=== PATIENT | female | born 1970 | race Two or more races ===

== ENCOUNTER 2018-07-03 22:40 | Inpatient (IN) | payer MEDICAID ==
[~2018-07-03] VITALS: Ht 160 cm; Wt 69.9 kg
[2018-07-03 23:22] VITALS: BP 132/83
[2018-07-03] MEDS ORDERED: Z GUARD REMEDY 2 OZ OINT TP PRN (23:30)
[2018-07-03] MEDS ORDERED: ONDANSETRON HCL/PF 4 MG/2 ML VIAL IVP PRN (23:30)
[2018-07-03] MEDS ORDERED: HYDROCODONE/APAP 5/325MG 1 EACH TABLET PO PRN (23:30)
[2018-07-03] MEDS ORDERED: MAGNESIUM HYDROXIDE 30 ML UDC PO PRN (23:30)
[2018-07-03] MEDS ORDERED: ACETAMINOPHEN 325 MG TABLET PO PRN (23:30)
[2018-07-04] VITALS (16 sets, daily range): BP systolic 107–148; BP diastolic 62–86
[2018-07-04 00:05] LABS: CALCIUM, SERUM 8.6 mg/dL (8.5-10.1); CREATININE 0.9 mg/dL (0.6-1.3); POTASSIUM 3.9 mmol/L (3.5-5.1)
[2018-07-04 00:13] LABS: BASOPHILS % (AUTO) 0.1 % (0.0-2.0); EOSINOPHILS % (AUTO) 0.2 % (0.0-6.0); LYMPHOCYTES # (AUTO) 1.8 /CMM (0.8-4.8); LYMPHOCYTES % (AUTO) 41.1 % (20.0-44.0); MEAN CORPUSCULAR HGB CONC 33 g/dl (31.0-36.0); MEAN CORPUSCULAR VOLUME 111 fL (82-100); MONOCYTES # (AUTO) 1.5 /CMM (0.1-1.30); NEUTROPHILS # (AUTO) 1.1 /CMM (1.8-8.9); NEUTROPHILS % (AUTO) 24.6 % (43.0-81.0); WHITE BLOOD COUNT (AUTO) 4.5 K/uL (4.3-11.0)
[2018-07-04 00:14] LABS: RED BLOOD CELL COUNT(AUTO) 1.54 MIL/uL (4.0-5.2)
[2018-07-04 00:17] LABS: HEMATOCRIT 17 % (33-45); HEMOGLOBIN 5.6 g/dL (11.5-14.8); PLATELET COUNT (AUTO) 20 /CMM (150-450)
[2018-07-04 00:33] LABS: EOSINOPHILS % (MANUAL) 1 % (0-4); LYMPHOCYTES % (MANUAL) 59 % (16-48); MONOCYTES % (MANUAL) 12 % (0-11.0); NEUTROPHILS % (MANUAL) 28 (42-76)
[2018-07-04 07:15] LABS: BASOPHILS % (AUTO) 0.2 % (0.0-2.0); EOSINOPHILS % (AUTO) 0.2 % (0.0-6.0); HEMATOCRIT 22 % (33-45); HEMOGLOBIN 7.4 g/dL (11.5-14.8); LYMPHOCYTES # (AUTO) 1.9 /CMM (0.8-4.8); LYMPHOCYTES % (AUTO) 39.2 % (20.0-44.0); MEAN CORPUSCULAR HGB CONC 34 g/dl (31.0-36.0); MEAN CORPUSCULAR VOLUME 103 fL (82-100); MONOCYTES # (AUTO) 1.8 /CMM (0.1-1.30); MONOCYTES % (AUTO) 36.9 % (2.0-12.0); NEUTROPHILS # (AUTO) 1.1 /CMM (1.8-8.9); NEUTROPHILS % (AUTO) 23.5 % (43.0-81.0); RED BLOOD CELL COUNT(AUTO) 2.11 MIL/uL (4.0-5.2); WHITE BLOOD COUNT (AUTO) 4.8 K/uL (4.3-11.0)
[2018-07-04 07:38] LABS: CALCIUM, SERUM 8.7 mg/dL (8.5-10.1); CREATININE 0.9 mg/dL (0.6-1.3); PHOSPHORUS 4.7 mg/dL (2.5-4.9); POTASSIUM 3.8 mmol/L (3.5-5.1)
[2018-07-04 07:39] LABS: PLATELET COUNT (AUTO) 20 /CMM (150-450)
[2018-07-04] MEDS: FOLIC ACID 1 MG TABLET PO SCH (08:14)
[2018-07-04] MEDS: PSYLLIUM SEED 1 PKT PACKET PO SCH (08:14)
[2018-07-04] MEDS: FERROUS SULFATE (325 MG) 325 MG/TAB TABLET PO SCH ×2 (08:14→18:52)
[2018-07-04 08:34] LABS: NEUTROPHILS % (MANUAL) 22 (42-76)
[2018-07-04 08:35] LABS: LYMPHOCYTES % (MANUAL) 61 % (16-48); MONOCYTES % (MANUAL) 17 % (0-11.0)
[2018-07-04] MEDS: NEOMY SULF/BACITRAC ZN/POLY 15 GM TUBE TP SCH (12:43)
[2018-07-04 13:46] LABS: THYROID STIMULATING HORMONE 3.537 uIU/mL (0.358-3.74)
[2018-07-04] MEDS ORDERED: MULT1TAB62 PO (17:36)
[2018-07-04] MEDS ORDERED: CHOL100044 PO (17:36)
[2018-07-04] MEDS ORDERED: ESCI10TA PO (17:36)
[2018-07-04] MEDS ORDERED: EMTR1TAB17 PO (17:36)
[2018-07-04] MEDS ORDERED: DARU1TAB PO (17:36)
[2018-07-04] MEDS ORDERED: DOCU-270 PO (17:36)
[2018-07-04] MEDS ORDERED: OMEG1CAP PO (17:36)
[2018-07-04] MEDS ORDERED: CEFTRIAXONE 1 G VIAL ONE (19:56)
[2018-07-04] MEDS: CEFTRIAXONE 1 G in IV D5W 50 ML IV SCH (20:13)
[2018-07-04] MEDS ORDERED: AZITHROMYCIN 500 MG VIAL ONE (21:42)
[2018-07-04] MEDS ORDERED: AZITHROMYCIN 500 MG in IV D5W 250 ML IV SCH (22:00)
[2018-07-04] MEDS: ZOLPIDEM TARTRATE 5 MG TABLET PO PRN (22:25)
[2018-07-04 23:34] LABS: OCCULT BLOOD STOOL NEGATIVE (NEGATIVE)
[2018-07-05] VITALS (8 sets, daily range): BP systolic 111–141; BP diastolic 66–88
[2018-07-05 07:03] LABS: BASOPHILS % (AUTO) 0.3 % (0.0-2.0); HEMATOCRIT 24 % (33-45); HEMOGLOBIN 8.2 g/dL (11.5-14.8); LYMPHOCYTES # (AUTO) 1.7 /CMM (0.8-4.8); MEAN CORPUSCULAR HGB CONC 34 g/dl (31.0-36.0); MEAN CORPUSCULAR VOLUME 99 fL (82-100); MONOCYTES % (AUTO) 40.3 % (2.0-12.0); NEUTROPHILS # (AUTO) 1.2 /CMM (1.8-8.9); NEUTROPHILS % (AUTO) 24.4 % (43.0-81.0); PLATELET COUNT (AUTO) 74 /CMM (150-450); RED BLOOD CELL COUNT(AUTO) 2.42 MIL/uL (4.0-5.2); WHITE BLOOD COUNT (AUTO) 4.9 K/uL (4.3-11.0)
[2018-07-05 07:12] LABS: CALCIUM, SERUM 9.1 mg/dL (8.5-10.1); CREATININE 0.8 mg/dL (0.6-1.3); POTASSIUM 3.8 mmol/L (3.5-5.1)
[2018-07-05 08:26] LABS: LYMPHOCYTES % (MANUAL) 65 % (16-48); NEUTROPHILS % (MANUAL) 22 (42-76)
[2018-07-05 08:27] LABS: MONOCYTES % (MANUAL) 13 % (0-11.0)
[2018-07-05] MEDS: FOLIC ACID 1 MG TABLET PO SCH (08:29)
[2018-07-05] MEDS: FERROUS SULFATE (325 MG) 325 MG/TAB TABLET PO SCH ×2 (08:29→16:50)
[2018-07-05] MEDS: PSYLLIUM SEED 1 PKT PACKET PO SCH (08:29)
[2018-07-05] MEDS ORDERED: ESCITALOPRAM OXALATE (10 MG) 10 MG TABLET PO SCH (09:00)
[2018-07-05] MEDS: DOCUSATE SODIUM 100 MG CAPSULE PO SCH (09:00)
[2018-07-05] MEDS: NEOMY SULF/BACITRAC ZN/POLY 15 GM TUBE TP SCH ×2 (09:00→16:57)
[2018-07-05] MEDS: CHOLECALCIFEROL 1,000 UNIT TABLET (VIT D3) PO SCH (09:54)
[2018-07-05] MEDS: MULTIVITAMINS,THERAGRAN 1 UDTAB TABLET PO SCH (09:55)
[2018-07-05 10:17] LABS: *% CD 4 POS. LYMPH 31.9 % (30.8-58.5); *% CD 8 POS. LYMPH 56.5 % (12.0-35.5); *CD4/CD8 RATIO 0.56 (0.92-3.72)
[2018-07-05] MEDS: DESCOVY 200-25MG TAB PO SCH (10:55)
[2018-07-05] MEDS: PREZCOBIX PO SCH (10:55)
[2018-07-05 14:19] LABS: *ABSOLUTE CD 4 HELPER 479 /uL (359-1519); *ABSOLUTE CD 8 SUPPRESSOR 848 /uL (109-897); *BASOS 0 % (Not Estab.); *EOS 0 % (Not Estab.); *HCT 21.8 % (34.0-46.6); *HGB 7.1 g/dL (11.1-15.9); *LYMPHOCYTES 30 % (Not Estab.); *LYMPHS, ABSOLUTE 1.5 x10E3/uL (0.7-3.1); *MCH 33.6 pg (26.6-33.0); *MCHC 32.6 g/dL (31.5-35.7); *MCV 103 fL (79-97); *MONOCYTES 8 % (Not Estab.); *MONOS, ABSOLUTE 0.4 x10E3/uL (0.1-0.9); *NEUTROPHILS 17 % (Not Estab.); *NEUTROPHILS, ABSOLUTE 0.9 x10E3/uL (1.4-7.0); *PLT 27 x10E3/uL (150-379); *RBC 2.11 x10E6/uL (3.77-5.28); *RDW 19.9 % (12.3-15.4)
[2018-07-05] MEDS: CEFTRIAXONE 1 G in IV D5W 50 ML IV SCH (20:35)
[2018-07-05] MEDS ORDERED: AZITHROMYCIN 250 MG TABLET PO SCH (22:00)
[2018-07-05] MEDS: ZOLPIDEM TARTRATE 5 MG TABLET PO PRN (22:32)
[2018-07-06 04:00] VITALS: BP 103/73
[2018-07-06 07:37] LABS: BASOPHILS % (AUTO) 0.3 % (0.0-2.0); EOSINOPHILS % (AUTO) 0.1 % (0.0-6.0); HEMATOCRIT 24 % (33-45); HEMOGLOBIN 8.1 g/dL (11.5-14.8); LYMPHOCYTES % (AUTO) 39.5 % (20.0-44.0); MEAN CORPUSCULAR HGB CONC 34 g/dl (31.0-36.0); MEAN CORPUSCULAR VOLUME 100 fL (82-100); MONOCYTES # (AUTO) 2.2 /CMM (0.1-1.30); NEUTROPHILS # (AUTO) 0.9 /CMM (1.8-8.9); NEUTROPHILS % (AUTO) 17.1 % (43.0-81.0); PLATELET COUNT (AUTO) 53 /CMM (150-450); RED BLOOD CELL COUNT(AUTO) 2.37 MIL/uL (4.0-5.2); WHITE BLOOD COUNT (AUTO) 5.1 K/uL (4.3-11.0)
[2018-07-06 08:00] VITALS: BP 110/70
[2018-07-06 08:16] LABS: LYMPHOCYTES % (MANUAL) 56 % (16-48); MONOCYTES % (MANUAL) 24 % (0-11.0); NEUTROPHILS % (MANUAL) 20 (42-76)
[2018-07-06 08:18] LABS: CALCIUM, SERUM 9.1 mg/dL (8.5-10.1); CREATININE 0.9 mg/dL (0.6-1.3); POTASSIUM 4.4 mmol/L (3.5-5.1)
[2018-07-06] MEDS: CHOLECALCIFEROL 1,000 UNIT TABLET (VIT D3) PO SCH (08:35)
[2018-07-06] MEDS: FERROUS SULFATE (325 MG) 325 MG/TAB TABLET PO SCH ×2 (08:36→16:11)
[2018-07-06] MEDS: MULTIVITAMINS,THERAGRAN 1 UDTAB TABLET PO SCH (08:36)
[2018-07-06] MEDS: DESCOVY 200-25MG TAB PO SCH (08:37)
[2018-07-06] MEDS: FOLIC ACID 1 MG TABLET PO SCH (08:37)
[2018-07-06] MEDS: PREZCOBIX PO SCH (08:37)
[2018-07-06] MEDS: DOCUSATE SODIUM 100 MG CAPSULE PO SCH (08:38)
[2018-07-06] MEDS: PSYLLIUM SEED 1 PKT PACKET PO SCH (08:38)
[2018-07-06] MEDS: NEOMY SULF/BACITRAC ZN/POLY 15 GM TUBE TP SCH (08:39)
[2018-07-06 14:13] LABS: *COMMENTS Note: (.)
[2018-07-06 16:00] VITALS: BP 120/61
[2018-07-06] MEDS: FLUOCINOLONE CREAM 0.01% TUBE TP SCH (16:11)
[2018-07-06 20:00] VITALS: BP 132/86
[2018-07-06] MEDS: ZOLPIDEM TARTRATE 5 MG TABLET PO PRN (23:36)
[2018-07-07 04:00] VITALS: BP 124/77
[2018-07-07 07:26] LABS: HEMATOCRIT 23 % (33-45); HEMOGLOBIN 7.9 g/dL (11.5-14.8); LYMPHOCYTES % (AUTO) 42.9 % (20.0-44.0); MEAN CORPUSCULAR HGB CONC 34 g/dl (31.0-36.0); MEAN CORPUSCULAR VOLUME 101 fL (82-100); MONOCYTES # (AUTO) 2.1 /CMM (0.1-1.30); MONOCYTES % (AUTO) 45.1 % (2.0-12.0); NEUTROPHILS # (AUTO) 0.6 /CMM (1.8-8.9); RED BLOOD CELL COUNT(AUTO) 2.27 MIL/uL (4.0-5.2); WHITE BLOOD COUNT (AUTO) 4.7 K/uL (4.3-11.0)
[2018-07-07 07:32] LABS: CALCIUM, SERUM 9.1 mg/dL (8.5-10.1); CREATININE 0.8 mg/dL (0.6-1.3); MAGNESIUM 2.3 mg/dL (1.8-2.4); PHOSPHORUS 5.6 mg/dL (2.5-4.9); POTASSIUM 4.4 mmol/L (3.5-5.1)
[2018-07-07 07:35] LABS: PLATELET COUNT (AUTO) 40 /CMM (150-450)
[2018-07-07 08:00] VITALS: BP 107/70
[2018-07-07] MEDS: PREZCOBIX PO SCH (08:14)
[2018-07-07] MEDS: DESCOVY 200-25MG TAB PO SCH (08:14)
[2018-07-07] MEDS: DOCUSATE SODIUM 100 MG CAPSULE PO SCH (08:15)
[2018-07-07] MEDS: CHOLECALCIFEROL 1,000 UNIT TABLET (VIT D3) PO SCH (08:15)
[2018-07-07] MEDS: FOLIC ACID 1 MG TABLET PO SCH (08:15)
[2018-07-07] MEDS: FERROUS SULFATE (325 MG) 325 MG/TAB TABLET PO SCH (08:15)
[2018-07-07] MEDS: MULTIVITAMINS,THERAGRAN 1 UDTAB TABLET PO SCH (08:15)
[2018-07-07] MEDS: PSYLLIUM SEED 1 PKT PACKET PO SCH (08:15)
[2018-07-07] MEDS: FLUOCINOLONE CREAM 0.01% TUBE TP SCH (08:22)
[2018-07-07] MEDS: NEOMY SULF/BACITRAC ZN/POLY 15 GM TUBE TP SCH (08:22)
[2018-07-07 08:52] LABS: LYMPHOCYTES % (MANUAL) 44 % (16-48); MONOCYTES % (MANUAL) 39 % (0-11.0); NEUTROPHILS % (MANUAL) 17 (42-76)
[2018-07-07 09:00] VITALS: BP 107/70
[2018-07-09 17:13] LABS: *HIV-1 RNA BY PCR <20 copies/mL (.)
== END 2018-07-07 14:12 | disposition home or self-care (01) | DRG 663 ==
LOC: TELE-TD 22:42 → TELE1 07-04 11:21 → MEDSG1 07-05 15:25
PROVIDERS: ADMIT Nurse Practitioner Acute Care; ATTEND Internal Medicine
DX: D64.9 Anemia, unspecified (principal); J15.9 Unspecified bacterial pneumonia; D69.59 Other secondary thrombocytopenia; S71.011A Laceration without foreign body, right hip, initial encounter; E86.1 Hypovolemia; R55 Syncope and collapse; W18.2XXA Fall in (into) shower or empty bathtub, initial encounter; Y93.9 Activity, unspecified; Y92.009 Unspecified place in unspecified non-institutional (private) residence as the place of occurrence of the external cause; Z91.14 Patient's other noncompliance with medication regimen; D61.818 Other pancytopenia
CPT/HCPCS: 36415; 71046; 80048-TC; 80061-TC; 82272-TC; 82728-TC; 83540-TC; 83605-TC; 83735-TC; 84100-TC; 84443-TC; 84703-TC; 85025-TC; 86360; 86850-TC; 86921-TC; 87040-TC; 87081-TC; 87086-TC; 87536; A6253; A6402; G0378; J0456; J0696; J7030; J7060; P9016-BL; P9034-BL

== ENCOUNTER 2018-08-06 18:31 | Inpatient (IN) | payer MEDICAID ==
[~2018-08-06] VITALS: Ht 160 cm; Wt 74.8 kg
[~2018-08-06 18:31] MED LIST: CHOL100044 PO; DARU1TAB PO; DOCU-270 PO; EMTR1TAB17 PO; ESCI10TA PO; MULT1TAB62 PO; OMEG1CAP PO
--- NOTE | 2018-08-06 18:52 | NUR ---
C/O DIZZINESS FOR 2WEEKS WORSE WHEN STANDING. DENIES PAIN, SOB, WEAKNESS. SKIN INTACT, AOX4, NO ACUTE DISTRESS NOTED. READY FOR EVAL.
[2018-08-06] MEDS ORDERED: PANTOPRAZOLE 40 MG VIAL ONE (19:13)
[2018-08-06] MEDS ORDERED: PANTOPRAZOLE 40 MG VIAL IV ONE (19:30)
[2018-08-06 19:42] LABS: BASOPHILS % (AUTO) 0.1 % (0.0-2.0); LYMPHOCYTES # (AUTO) 2.2 /CMM (0.8-4.8); LYMPHOCYTES % (AUTO) 45.7 % (20.0-44.0); MEAN CORPUSCULAR HGB CONC 34 g/dl (31.0-36.0); MEAN CORPUSCULAR VOLUME 102 fL (82-100); MONOCYTES # (AUTO) 1.8 /CMM (0.1-1.30); NEUTROPHILS # (AUTO) 0.8 /CMM (1.8-8.9); NEUTROPHILS % (AUTO) 16.2 % (43.0-81.0); WHITE BLOOD COUNT (AUTO) 4.8 K/uL (4.3-11.0)
[2018-08-06 19:43] LABS: RED BLOOD CELL COUNT(AUTO) 1.45 MIL/uL (4.0-5.2)
[2018-08-06 19:44] LABS: HEMATOCRIT 15 % (33-45); PLATELET COUNT (AUTO) 12 /CMM (150-450)
[2018-08-06 19:54] LABS: ALANINE AMINOTRANSFERASE 20 U/L (12-78); ALBUMIN 3.5 g/dL (3.4-5.0); ALKALINE PHOSPHATASE 98 U/L (46-116); ASPARTATE AMINOTRANSFERASE 15 U/L (15-37); BILIRUBIN,TOTAL 0.2 mg/dL (0.2-1.0); CALCIUM, SERUM 8.9 mg/dL (8.5-10.1); CARBON DIOXIDE 19 mmol/L (21-32); CHLORIDE 102 mmol/L (98-107); CREATININE 0.9 mg/dL (0.6-1.3); GLUCOSE 124 mg/dL (74-106); POTASSIUM 3.7 mmol/L (3.5-5.1); SODIUM SERUM 137 mmol/L (136-145); TOTAL PROTEIN, SERUM 8.8 g/dL (6.4-8.2); UREA NITROGEN, BLOOD 18 mg/dL (7-18)
--- NOTE | 2018-08-06 20:58 | NUR ---
ADMIT TO ROOM 307-1 DX DIZZINES TELE ACCEPTING ELEUTERIO POTTER
[2018-08-06 21:11] LABS: LYMPHOCYTES % (MANUAL) 44 % (16-48); METAMYELOCYTES % 9 % (0-0); MONOCYTES % (MANUAL) 6 % (0-11.0); MYELOCYTES % 7 % (0-0); NEUTROPHILS % (MANUAL) 10 (42-76); PROMYELOCYTES % 24 % (0-0)
--- NOTE | 2018-08-06 21:17 | NUR ---
BLOOD TRANSFUSION STARTED, VSS, AT 125ML/HR. WILL CONT TO MONITOR OVER NEXT 15 MIN
--- NOTE | 2018-08-06 21:21 | NUR ---
PT REASSIGNED TO BED 115-2
--- NOTE | 2018-08-06 21:32 | NUR ---
REPORT GIVEN TO TEST CELL TECHNICIANTITO BAUMANN FOR 115-2 MARAL
--- NOTE | 2018-08-06 21:32 | NUR ---
PT STABLE AFTER 15 MIN. NO EVIDENCE OF TRANSFUSION REACTION. WILL CONT TRANSFUSION AT 150 ML/HR AND CONT TO MONITOR.
[2018-08-06 22:20] VITALS: BP 147/78
--- NOTE | 2018-08-06 22:20 | NUR ---
REFRIGERATION SUPERVISOR NOTES PT RECEIVED A&OX4. PT PLACED ON TELE MONITOR, READING SR , HR 90. PT COMPLAINS AND WEAKNESS AND DIZZINESS ON EXERTION. NO PAIN REPORTED. PT HAS L HAND #20 G. WITH I UNIT PRBC INFUSING WHICH WAS STARTED IN THE ED. PT ORIENTED TO ROOM AND FLOOR. ALL SAFETY PRECAUTIONS TAKE. BED IN LOW LOCKED POSITION. CALL LIGHT WITH IN REACH. WILL CONT TO MONITOR.
--- NOTE | 2018-08-06 22:24 | NUR ---
PT TRANSFERRED TO FLOOR VIA SUNNY Addendum: 08/06/18 at 2245 by JEREMY BLOOD TRANSFUSION CONTINUED TO FLOOR
--- NOTE | 2018-08-06 22:45 | NUR ---
BED 110 MARAL
--- NOTE | 2018-08-06 23:45 | NUR ---
RN NOTES TRANSFUSION OF PRBC COMPLETED. NO REACTION NOTED. PT IN STABLE CONDITION.
[2018-08-07] VITALS (13 sets, daily range): BP systolic 90–130; BP diastolic 52–165
--- NOTE | 2018-08-07 00:30 | NUR ---
RN NOTES CALLED [facility],B RE; PLATELETS TO BE TRANSFUSED ORDERED. PER LAB PERSONAL. PLATELETS WILL NOT BE AVAILABLE UNTIL 0300AM. LAB WILL CALL RN WHEN PLATELETS ARRIVE. CHARGE NURSE ELON AND MD ABBEY MCCLELLAN NOTIFIED.
--- NOTE | 2018-08-07 02:51 | NUR ---
TITO NOTES 0205 LEFT MESSAGE FOR ELEUTERIO POTTER NP FOLLOW UP FOR ADMISSION ORDERS Addendum: 08/07/18 at 0310 by ARVIND CHÁVEZ RN 0309 MESSAGE SENT TO Jimenez POTTER NP TO REMIND HER OF ADMISSION ORDERS
[2018-08-07] MEDS ORDERED: ONDANSETRON HCL/PF 4 MG/2 ML VIAL IVP PRN (06:00)
[2018-08-07] MEDS ORDERED: ZOLPIDEM TARTRATE 5 MG TABLET PO PRN (06:00)
[2018-08-07] MEDS ORDERED: ACETAMINOPHEN 325 MG TABLET PO PRN (06:00)
[2018-08-07] MEDS ORDERED: Z GUARD REMEDY 2 OZ OINT TP PRN (06:00)
--- NOTE | 2018-08-07 07:20 | NUR ---
RN OPENING NOTES PT IS LAYING IN BED IN SEMI SY POSITION. RECEIVED REPORT FROM SIDE PANEL HANGER RN. PT RECEIVED PLATELET TRANSFUSION AT THE END OF THE TRANSFUSION PT COMPLAINED OF ITCHING. PER SIDE PANEL HANGER RN SHE CONTACTED THE LITHOGRAPHIC ETCHER PHYSICIAN AND LEFT A MESSAGE. PICTURES WERE TAKEN BY ME. WHEN ASKED PT SAYS THE ITCHING SENSATION IS MINIMAL AND REFUSED BENADRYL WHEN OFFERED. PT DENIES ANY PAIN OR SOB AT PRESENT MOMENT WILL CONTINUE TO MONITOR.
--- NOTE | 2018-08-07 07:35 | NUR ---
RN CLOSING NOTES PLATE TRANSFUSION WAS COMPLETED. UPON COMPLETING PLATE TRANSFUSION, I WAS IN THE PROCESS OF GETTING THE PTS ENDING VS, THE PT REPORTED TO THAT HER LEGS AND BACK STARTED ITCHING, PT STATED THAT ITCHING HAD JUST STARTED. UPON FURTHER ASSESSMENT, THE PT SKIN WAS FOUND TO HAVE [place] OF PICURIS ON COCO LEGS, COCO ARMS, BACK AND CHEST. FINANCIAL AID MANAGER FEI WAS NOTIFIED. FEI ALSO WENT TO SEE THE PT. [employer] WAS CALLED, A MESSAGE WAS LEFT FOR DR ON-CALL. ELEUTERIO POTTER WAS TEXTED EMPLANING. AWAITING TO SPEAKING TO ONE OF THE MDS.
[2018-08-07] MEDS ORDERED: diphenhydrAMINE HCL 25 MG CAPSULE PO ONE (08:30)
--- NOTE | 2018-08-07 09:15 | NUR ---
PROCESS IMPROVEMENT SPECIALIST NOTES PER DR. GRETA MIRANDA TO TRANSFER TO [facility].
[2018-08-07] MEDS ORDERED: diphenhydrAMINE HCL 50 MG CAPSULE PO ONE ×2 (15:30→21:00)
[2018-08-07] MEDS ORDERED: ACETAMINOPHEN 650 MG/20.3 ML UDC NG ONE ×2 (15:30→21:00)
[2018-08-07 17:47] LABS: BASOPHILS % (AUTO) 0.1 % (0.0-2.0); LYMPHOCYTES # (AUTO) 1.8 /CMM (0.8-4.8); LYMPHOCYTES % (AUTO) 42.7 % (20.0-44.0); MEAN CORPUSCULAR HGB CONC 35 g/dl (31.0-36.0); MEAN CORPUSCULAR VOLUME 94 fL (82-100); MONOCYTES # (AUTO) 1.9 /CMM (0.1-1.30); MONOCYTES % (AUTO) 46.2 % (2.0-12.0); NEUTROPHILS # (AUTO) 0.5 /CMM (1.8-8.9); PLATELET COUNT (AUTO) 73 /CMM (150-450); WHITE BLOOD COUNT (AUTO) 4.2 K/uL (4.3-11.0)
[2018-08-07 17:54] LABS: RED BLOOD CELL COUNT(AUTO) 1.78 MIL/uL (4.0-5.2)
[2018-08-07 18:00] LABS: HEMATOCRIT 17 % (33-45); HEMOGLOBIN 5.8 g/dL (11.5-14.8)
--- NOTE | 2018-08-07 18:10 | NUR ---
CRITICAL LAB VALUES REPORTED BY LAB. I REPORTED TO EMMY YI AT 1810. ORDERS RECEIVED. 2 UNITS PRBC PRE MEDICATE WITH BENADRYL AND TYLENOL.
[2018-08-07 18:52] LABS: LYMPHOCYTES % (MANUAL) 63 % (16-48); MONOCYTES % (MANUAL) 21 % (0-11.0); NEUTROPHILS % (MANUAL) 16 (42-76)
--- NOTE | 2018-08-07 19:21 | NUR ---
RN CLOSING NOTES REPORT GIVEN TO SOLE TRIMMER RN. PT RESTING COMFORTABLY IN BED. PT IS A&O X4. BED IS LOCKED AND IN LOWEST POSITION. PT DENIES ANY PAIN OR SOB AT PRESENT MOMENT. IV IN L HAND 20 GAUGE IS SL. CALL LIGHT WITHIN REACH. ALL NEEDS MET. WILL ENDORSE CONTINUITY OF CARE TO SOLE TRIMMER RN.
--- NOTE | 2018-08-07 20:20 | NUR ---
RN OPENING NOTES RECEIVED REPORT FROM NAVNEET FRANCIS. PATIENT A/A/O X4, ABLE TO MAKE NEEDS KNOWN. BREATHING EVEN & UNLABORED, TOLERATING ROOM AIR. DENIES ANY SOB OR DIFFICULTY BREATHING. RADIAL PULSES PRESENT. LEFT HAND IV #20 INTACT & PATENT W/ DRESSING CDI, SALINE LOCKED. DENIES ANY PAIN, DIZZINESS OR LIGHTHEADEDNESS @ THIS TIME. ABLE TO AMBULATE INDEPENDENTLY. SAFETY MEASURES IN PLACE W/ SIDE RAILS UP & CALL LIGHT WITHIN REACH. INSTRUCTED TO CALL FOR ASSISTANCE. WILL CONTINUE TO MONITOR.
--- NOTE | 2018-08-07 21:15 | NUR ---
RN NOTES ONE UNIT PRBC TRANSFUSION STARTED @ 2057. CHECKED AND VERIFIED W/ 2ND TITO DENNEY. NO INITIAL ADVERSE REACTIONS NOTED AFTER 15MIN. VSS. WILL CONTINUE TO MONITOR. Addendum: 08/08/18 at 0032 by THOMPSON HDEZ RN PRE MEDICATED PATIENT W/ TYLENOL & BENADRYL ORDERED BEFORE START OF BLOOD TRANSFUSION.
[2018-08-08 00:23] VITALS: BP 98/60
--- NOTE | 2018-08-08 00:31 | NUR ---
RN NOTES PRBC TRANSFUSION ENDED W/ NO ADVERSE REACTIONS NOTED. VSS.
[2018-08-08 04:00] VITALS: BP 100/63
[2018-08-08 06:25] LABS: CALCIUM, SERUM 8.9 mg/dL (8.5-10.1); CREATININE 0.8 mg/dL (0.6-1.3); MAGNESIUM 2.2 mg/dL (1.8-2.4); PHOSPHORUS 5.3 mg/dL (2.5-4.9); POTASSIUM 4.1 mmol/L (3.5-5.1)
[2018-08-08 06:46] LABS: THYROID STIMULATING HORMONE 2.134 uIU/mL (0.358-3.74)
--- NOTE | 2018-08-08 07:10 | NUR ---
MS RN OPENING NOTES RECEIVED PT LYING ON BED,SLEEPING.ON ROOM AIR,TOLERATING WELL.NO SOB AND ACUTE DISTRESS NOTED.CAN AMBULATE WELL TO RESTROOM WITH MINIMAL ASSISTANCE.IV LINE IS ON LEFT HAND G20,SITE IS CLEAN,DRY AND INTACT.NO INFILTRATION NOTED.SAFETY IS MAINTAINED AT ALL TIMES.BED IS IN LOW POSITION AND LOCKED.CALL LIGHT IS WITHIN REACH.WILL CONTINUE TO MONITOR THE PT CLOSELY.
[2018-08-08 07:36] LABS: OCCULT BLOOD STOOL NEGATIVE (NEGATIVE)
[2018-08-08 08:00] VITALS: BP 112/72
[2018-08-08 09:49] LABS: BASOPHILS % (AUTO) 0.2 % (0.0-2.0); HEMATOCRIT 23 % (33-45); HEMOGLOBIN 7.7 g/dL (11.5-14.8); LYMPHOCYTES # (AUTO) 1.9 /CMM (0.8-4.8); LYMPHOCYTES % (AUTO) 41.8 % (20.0-44.0); MEAN CORPUSCULAR HGB CONC 34 g/dl (31.0-36.0); MEAN CORPUSCULAR VOLUME 95 fL (82-100); MONOCYTES # (AUTO) 2.3 /CMM (0.1-1.30); MONOCYTES % (AUTO) 49.6 % (2.0-12.0); NEUTROPHILS # (AUTO) 0.4 /CMM (1.8-8.9); NEUTROPHILS % (AUTO) 8.4 % (43.0-81.0); PLATELET COUNT (AUTO) 67 /CMM (150-450); RED BLOOD CELL COUNT(AUTO) 2.37 MIL/uL (4.0-5.2); WHITE BLOOD COUNT (AUTO) 4.6 K/uL (4.3-11.0)
[2018-08-08 11:39] LABS: LYMPHOCYTES % (MANUAL) 56 % (16-48); MONOCYTES % (MANUAL) 33 % (0-11.0); NEUTROPHILS % (MANUAL) 10 (42-76); REACTIVE LYMPHOCYTES 1 % (0-0)
[2018-08-08 16:00] VITALS: BP 119/78
--- NOTE | 2018-08-08 19:01 | NUR ---
MS RN CLOSING NOTES PT IS LYING ON BED.IV LINE IS IN PLACE.ALERT/ORIENTED X4.NO SIGNIFICANT CHANGES NOTED THE SHIFT.RESPIRATION IS EVEN AND NONLABORED ON ROOM AIR.NO PAIN NOTED.ENDORSED TO SALES UTILITY REPRESENTATIVE TITO ACEVEDO FOR BRIDGETTE.
--- NOTE | 2018-08-08 19:25 | NUR ---
MS RN NOTE REPORT GIVEN BEDSIDE. PATIENT A/O X4 IN BED WITH FAMILY AT BEDSIDE. PATIENT HAS NO C/O DISCOMFORT AND PAIN AT THIS TIME. PATIENT EXPRESSES DESIRE TO TALK TO DR QUINTANILLA. PATIENT AWARE SHE HAS CONSULT PENDING. PATIENT HAS NO S/S OF /SOB/ CHEST PAIN. NO N/V PRESENT. SAFETY PRECAUTIONS IN PLACE BED IN LOWEST LOCKED POSITION. RN WILL CONTINUE TO MONITOR.
[2018-08-08 20:00] VITALS: BP 134/77
[2018-08-09 04:00] VITALS: BP 106/89
--- NOTE | 2018-08-09 07:10 | NUR ---
MS RN OPENING NOTES RECEIVED PT LYING ON BED.ALERT/ORIENTED X4.ON ROOM AIR,TOLERATING WELL.NO SON AND ACUTE DISTRESS NOTED.NO PAIN NOTED FOR NOW.IV LINE IS ON LEFT HAND G20,SL.SITE IS CLEAN,DRY AND INTACT.NO INFILTRATION NOTED.BED IS IN LOW POSITION AND LOCKED.CALL LIGHT IS WITHIN REACH.WILL CONTINUE TO MONITOR THE PT AND MONITOR FOR ANY S/S BLEEDING.
[2018-08-09 08:00] VITALS: BP 107/64
[2018-08-09 11:07] LABS: *% CD 4 POS. LYMPH 27.7 % (30.8-58.5); *% CD 8 POS. LYMPH 54.1 % (12.0-35.5); *CD4/CD8 RATIO 0.51 (0.92-3.72)
[2018-08-09 11:59] LABS: HEMOGLOBIN 7.9 g/dL (11.5-14.8)
[2018-08-09 14:08] LABS: *ABSOLUTE CD 4 HELPER 526 /uL (359-1519); *ABSOLUTE CD 8 SUPPRESSOR 1028 /uL (109-897); *BASOS 0 % (Not Estab.); *COMMENTS Note: (.); *EOS 0 % (Not Estab.); *HCT 22.4 % (34.0-46.6); *HGB 7.4 g/dL (11.1-15.9); *LYMPHOCYTES 40 % (Not Estab.); *LYMPHS, ABSOLUTE 1.9 x10E3/uL (0.7-3.1); *MCH 30.6 pg (26.6-33.0); *MCV 93 fL (79-97); *MONOCYTES 10 % (Not Estab.); *MONOS, ABSOLUTE 0.5 x10E3/uL (0.1-0.9); *NEUTROPHILS 4 % (Not Estab.); *PLT 78 x10E3/uL (150-379); *RBC 2.42 x10E6/uL (3.77-5.28); *RDW 17.4 % (12.3-15.4)
--- NOTE | 2018-08-09 14:45 | NUR ---
MS RN NOTES NOTED THE CRITICAL LABS ABSOLUTE NEUTROPHIL 0.[address] BOOTH AND [address]SUJIE QUINTANILLA,NNO NOTED.
[2018-08-09 16:00] VITALS: BP 117/87
--- NOTE | 2018-08-09 17:40 | NUR ---
MS SUPERVISOR PRE WAVE NOTES PT IS DISCHARGED TO HOME WITH SON .ALL THE DISCHARGE MEDICATIONS AND FOLLOW UP APPOINTMENT AND MEDICATION COMPLIANCE HAS DISCUSSED WITH THE PT,VERBALIZED UNDERSTOOD.IV LINE FROM LEFT AC G20 IS REMOVED.NO BLEEDING NOTED.MILD PRESSURE DRESSING APPLIED.ALL THE BELONGINGS TAKEN BY THE PT AND SIGNED BY THE PT.ON ROOM AIR,TOLERATING WELL.VITAL SIGNS CHECKED AND RECORDED.NO COMPLICATIONS NOTED.SHE DENIES WHEELCHAIR.SHE AMBULATED TO THE PARKING LOT WITH THE SON.
[2018-08-14 16:12] LABS: *HIV-1 RNA BY PCR 500 copies/mL (.); *HIV-1 log10 RNA 2.699 (.)
[2018-08-24 18:27] LABS: *NEUTROPHILS, ABSOLUTE 0.2 x10E3/uL
== END 2018-08-09 17:40 | disposition home or self-care (01) | DRG 663 ==
LOC: ER 18:35 → TELE 21:01 → TELE1 21:32 → MEDSG1 08-07 09:04
PROVIDERS: ADMIT Nurse Practitioner Acute Care; ATTEND Nurse Practitioner Acute Care
PROC: 30233N1 Transfusion of Nonautologous Red Blood Cells into Peripheral Vein, Percutaneous Approach (ICD-10-PCS; principal; 2018-08-06)
PROC: 30233R1 Transfusion of Nonautologous Platelets into Peripheral Vein, Percutaneous Approach (ICD-10-PCS; 2018-08-07)
DX: D53.9 Nutritional anemia, unspecified (principal); D69.6 Thrombocytopenia, unspecified; E86.1 Hypovolemia; Z91.14 Patient's other noncompliance with medication regimen
CPT/HCPCS: 36415; 71045-TC; 80048-TC; 80076-TC; 82272-TC; 82728-TC; 83540-TC; 83735-TC; 84100-TC; 84443-TC; 84484-TC; 85025-TC; 85027-TC; 85730-TC; 86360; 86850-TC; 86921-TC; 87081-TC; 87536; C9113; G0378; J7050; P9016-BL; P9034-BL; Q0163